=== PATIENT | female | born 1985 | race Caucasian/White ===

== ENCOUNTER 2020-05-13 11:29 | Emergency (ER) | payer OTHER ==
[2020-05-13 13:03] LABS: HEMOGLOBIN 14.5 gm/dl (12.3-15.3); RED BLOOD COUNT 5.31 M/UL (4.00-5.10); WHITE BLOOD COUNT 13.9 K/UL (4.5-11.0)
[2020-05-13 13:25] LABS: BUN/CREATININE RATIO 19 (0-10)
== END 2020-05-13 21:21 | disposition short-term general hospital (02) ==
LOC: ER1 11:29
PROVIDERS: Physician Assistant
DX: M46.27 Osteomyelitis of vertebra, lumbosacral region (principal); M46.47 Discitis, unspecified, lumbosacral region; F19.90 Other psychoactive substance use, unspecified, uncomplicated; R31.9 Hematuria, unspecified; R10.84 Generalized abdominal pain; R60.0 Localized edema; F17.200 Nicotine dependence, unspecified, uncomplicated; Z98.890 Other specified postprocedural states; Z88.0 Allergy status to penicillin; Z20.822 Contact with and (suspected) exposure to COVID-19
CPT/HCPCS: 71045; 72129; 72132; 80053; 81001; 83605; 84703; 85025; 87040; 87077; 87086; 87186; 87635; 93005; 96365; 96366; 96367; 96375; 99285; J0696; J2185; J2270; J2405; J3370; J7030